=== PATIENT | male | born 2000 | race Caucasian/White ===

== ENCOUNTER 2020-12-24 15:03 | Inpatient (IN) | payer BC ==
[~2020-12-24] VITALS: Ht 190.5 cm; Wt 66.2 kg
[2020-12-24] VITALS (14 sets, daily range): BP systolic 111–164; BP diastolic 68–101
[2020-12-24] MEDS ORDERED: NS 100ML 100 ML IV ONE ×2 (16:42→22:54)
[2020-12-24] MEDS ORDERED: HUMULIN R ONE (16:43)
[2020-12-24] MEDS ORDERED: NS 1000ML 1,000 ML ONE ×2 (16:45→18:50)
[2020-12-24] MEDS ORDERED: HUMULIN R 100 UNIT in NS 100ML 100 ML IV SCH (17:00)
[2020-12-24] MEDS: NS 1000ML 1,000 ML IV SCH (17:27)
[2020-12-24 17:35] LABS: ABG PCO2 11.3 mmHg (35.0-45.0); BE(B) -26.2 mmol/L (-2.0-2.0); HCO3act 2.8 mmol/L (22.0-26.0); pO2 113.8 mmHg (80.0-100.0)
--- NOTE | 2020-12-24 17:48 | PCM.HP ---
History of Present Illness Reason for Visit: Nausea vomiting and abdominal pain History of Present Illness 20-year-old male with history of diabetes mellitus, type I being transferred from outside facility after he presented there with nausea vomiting and abdominal pain. Patient was found to be in diabetic ketoacidosis with elevated glucose, elevated anion gap more than 30 and a pH of 7.0. Apparently patient has not been able to take his Lantus for financial reasons. He only takes his Humalog. Start feeling sick the last 2 days. No fever no chills. Patient is being admitted to intensive care unit for further management. Past Medical History Endocrine: Diabetes Past Surgical History: No pertinent hx Past Social History Smoke: No Alcohol: none Review of Systems Constitutional: Weakness Gastrointestinal: Nausea, Vomiting, Abdominal Pain Allergies: Coded Allergies: No Known Allergies (Unverified , 12/24/20) Scheduled Insulin Glargine,Hum.rec.anlog (Lantus), 30 UNIT SQ HS Insulin Lispro (Humalog), 10 UNIT SQ AC VTE VTE Risk Score VTE Risk: Score 0-1 = Low Risk (Aggressive mobilization; early ambulation; no VTE prophylaxis required) Score 2: Moderate Risk (Intermittent/Pneumatic Compression Device OR Lovenox/Heparin/Coumadin) Score 3-4: High Risk (Intermittent/Pneumatic Compression Device AND Lovenox/Heparin/Coumadin) Score > or =5: Highest Risk (Intermittent/Pneumatic Compression Device AND Lovenox/Heparin/Coumadin) VTE VTE Present on Admission: No Currently receiving anticoagul: No Exam Vital Signs Vital Signs Date Time Temp Pulse Resp B/P (MAP) Pulse Ox O2 Delivery O2 Flow Rate FiO2 12/24/20 17:01 98.6 125 24 164/101 (122) 97 General Appearance: Alert, moderate distress HEENT: Atraumatic, PERRLA, Other (Dry mucous membranes) Respiratory: Clear to auscultation, Normal air movement Cardiovascular: Regular rate, Normal S1, Normal S2 Abdominal: Normal bowel sounds, Soft Extremities: No cyanosis Skin: No breakdown, No lesions Neuro: Normal speech, Normal tone Psych/Mental Status: Mental status NL, Mood NL Assessment/Plan Assessment/Plan Assessment/Plan 20-year-old male with history of diabetes mellitus, type I being transferred from outside facility after he presented there with nausea vomiting and abdominal pain. Patient was found to be in diabetic ketoacidosis with elevated glucose, elevated anion gap more than 30 and a pH of 7.0. Apparently patient has not been able to take his Lantus for financial reasons. He only takes his Humalog. Start feeling sick the last 2 days. No fever no chills. Patient is being admitted to intensive care unit for further management. Plan Admit to ICU IV fluids Insulin Monitor and correct electrolytes Empiric antibiotic for elevated WBC count, Diabetic teaching GI and DVT prophylaxis Expect length of stay more than 1 midnight Case discussed with patient and patient family Patient presenting with potentially life-threatening condition, critical care time spent examining the patient, reviewing labs, discussing the case with DIRECTOR HOSPICE OPERATIONS, patient and patient family, documentation 70 minutes Problems: (1) DKA, type 1 ICD Code: E10.10 - Type 1 diabetes mellitus with ketoacidosis without coma SNOMED: 55821576, [id number] IGNACIO MENENDEZ MD Dec 24, 2020 17:48
[2020-12-24] MEDS ORDERED: D5W 1000ML 1,000 ML IV PRN (18:00)
[2020-12-24] MEDS: PROTONIX IV IV SCH (18:00)
[2020-12-24] MEDS ORDERED: ZOFRAN IV PRN ×2 (18:00)
[2020-12-24] MEDS ORDERED: DEXTROSE 50%-WATER SYRINGE IV PRN (18:00)
[2020-12-24 18:15] LABS: MEAN CORP HGB 30.1 pg (26-34); RED CELL DISTRIBUTION WIDTH 12.2 % (11.5-14.5)
[2020-12-24 18:20] LABS: CALCIUM 8.8 mg/dL (8.4-10.5); CARBON DIOXIDE 5.8 mmol/L (20.0-32)
--- NOTE | 2020-12-24 18:45 | PCM.EKG ---
[facility] Test Date: 2020-12-24 Test Time: 18:36:35 Pat Name: PRATIBHA ARITA Department: Room: ICU6 A Gender: M It Consultant: : [id number] Requested By: IGNACIO MENENDEZ Order Number: [id number] Reading MD: Measurements Intervals [place] Rate: 124 P: 72 ND: 120 QRS: 63 QRSD: 106 T: 28 QT: 329 QTc: 473 Interpretive Statements Sinus tachycardia Probable left atrial enlargement Borderline prolonged QT interval No previous ECG available for comparison Please click the below link to view image of tracing.
--- NOTE | 2020-12-24 19:15 | DIREP ---
PROCEDURE:CHEST 1 VIEW COMPARISON:None. INDICATIONS:DKA FINDINGS: LUNGS/PLEURA:No significant pulmonary parenchymal abnormalities. No effusions. VASCULATURE:Normal. Unremarkable pulmonary vasculature. CARDIAC:Normal. No cardiac silhouette abnormality or cardiomegaly. MEDIASTINUM:Normal. No visible mass or adenopathy. BONES:Normal. No fracture or visible bony lesion. OTHER:Negative. CONCLUSION:No acute cardiopulmonary abnormality. Dictated by: Kenny Duvall M.D. on 12/24/2020 at 07:12 PM
--- NOTE | 2020-12-24 20:38 | NUR ---
NOTIFIED DR NG OF LACTIC OF 2.9 AND PT RUNNING NS @ 250 NO NEW ORDERS RECEIVED
[2020-12-24] MEDS ORDERED: D5W-1/2NS 1000ML 1,000 ML ONE (21:54)
[2020-12-24] MEDS: D5W-1/2NS 1000ML 1,000 ML IV SCH (22:00)
--- NOTE | 2020-12-24 22:00 | NUR ---
B.S. <200. NS infusion stopped and D51/2 NS started @250ml/hr per protocol
--- NOTE | 2020-12-24 22:24 | NUR ---
BMP and UA collected and sent to lab
[2020-12-24 22:36] LABS: BILIRUBIN,URINE 1+ (NEGATIVE); UROBILINOGEN,URINE 0.2 E.U./dL (0.2)
--- NOTE | 2020-12-24 22:54 | NUR ---
Repeat lactic sent down to lab.
[2020-12-24] MEDS: MAXIPIME 1 GM in NS 100ML 100 ML IV SCH (23:00)
[2020-12-25] VITALS (40 sets, daily range): BP systolic 103–149; BP diastolic 49–96
[2020-12-25 00:36] LABS: CALCIUM 8.6 mg/dL (8.4-10.5); CARBON DIOXIDE 11.2 mmol/L (20.0-32)
--- NOTE | 2020-12-25 00:50 | NUR ---
Dr. Garcia notified of pt current BMP and lactic lab results.
[2020-12-25] MEDS: D5W-1/2NS 1000ML 1,000 ML IV SCH ×3 (03:22→11:00)
[2020-12-25 04:35] LABS: BASOPHIL % 0.1 % (0.0-0.2); LYMPHOCYTES # 2.02 10^3/uL1 (1.2-5.2); LYMPHOCYTES % 10.9 % (24.0-44.0); MEAN CORP HGB 30.5 pg (26-34); MONOCYTES # 1.9 10^3/uL (0.0-0.4); MONOCYTES % 10.2 % (5.0-12.0); NEUTROPHIL # 14.6 10^3/uL (1.8-8.0); NEUTROPHILS % 78.8 % (41.0-85.0); PLATELET COUNT 305 10^3/uL (150-400); RED CELL DISTRIBUTION WIDTH 12.5 % (11.5-14.5)
[2020-12-25 04:50] LABS: CALCIUM 8.8 mg/dL (8.4-10.5); CARBON DIOXIDE 17.1 mmol/L (20.0-32)
[2020-12-25 04:53] LABS: ABG PH 7.298 (7.350-7.450); BE(B) -11.7 mmol/L (-2.0-2.0); HCO3act 12.9 mmol/L (22.0-26.0); pO2 89.9 mmHg (80.0-100.0)
[2020-12-25] MEDS: NS 1000ML 1,000 ML IV SCH (06:00)
[2020-12-25 08:19] LABS: CALCIUM 8.8 mg/dL (8.4-10.5); CARBON DIOXIDE 19.1 mmol/L (20.0-32)
[2020-12-25] MEDS: PROTONIX IV IV SCH (09:00)
[2020-12-25] MEDS: MAXIPIME 1 GM in NS 100ML 100 ML IV SCH ×2 (09:00→22:00)
[2020-12-25 12:15] LABS: CALCIUM 8.9 mg/dL (8.4-10.5); CARBON DIOXIDE 14.3 mmol/L (20.0-32)
--- NOTE | 2020-12-25 14:42 | PRM.PN ---
Subjective Subjective Date: Dec 25, 2020 Time: 09:00 Subjective Patient is feeling better this morning. Has vomiting. Anion gap improving. Continues to be on IV fluids and insulin drip. WBC count trending down. Review of Systems Constitutional: Weakness Gastrointestinal: Nausea, Vomiting, Abdominal Pain Allergies: Coded Allergies: No Known Allergies (Unverified , 12/24/20) Objective Vitals and I/O Vital Sign - Last 24 Hours 12/24/20 12/24/20 12/24/20 12/24/20 16:48 17:00 17:01 18:30 Temp 98.6 Pulse 125 132 Resp 24 24 B/P (MAP) 147/84 (105) 164/101 (122) Pulse Ox 95 96 97 99 12/24/20 12/24/20 12/24/20 12/24/20 18:45 19:00 19:15 19:30 Pulse 120 116 116 122 Resp 21 20 20 23 B/P (MAP) 145/73 (97) 115/79 (91) 125/90 (102) Pulse Ox 99 100 98 99 12/24/20 12/24/20 12/24/20 12/24/20 19:45 20:00 20:00 20:15 Temp 98.8 Pulse 120 125 122 Resp 16 18 19 B/P (MAP) 134/78 (96) 126/83 (97) Pulse Ox 99 99 99 O2 Delivery Room Air 12/24/20 12/24/20 12/24/20 12/24/20 20:30 20:45 21:00 21:15 Pulse 118 119 118 118 Resp 17 16 15 16 B/P (MAP) 118/68 (85) 124/78 (93) Pulse Ox 99 99 99 99 12/24/20 12/24/20 12/24/20 12/24/20 21:30 21:45 22:00 22:15 Pulse 120 118 118 119 Resp 16 15 16 16 B/P (MAP) 124/75 (91) 128/75 (92) Pulse Ox 99 99 99 99 12/24/20 12/24/20 12/24/20 12/24/20 22:30 22:45 23:00 23:15 Pulse 115 116 114 114 Resp 22 20 20 16 B/P (MAP) 131/71 (91) 111/90 (97) Pulse Ox 99 98 99 99 12/24/20 12/24/20 12/25/20 12/25/20 23:30 23:45 00:00 00:14 Pulse 114 110 108 Resp 16 17 16 B/P (MAP) 133/76 (95) 110/63 (79) Pulse Ox 99 98 98 O2 Delivery Room Air 12/25/20 12/25/20 12/25/20 12/25/20 00:15 00:30 00:45 01:00 Temp 98.4 Pulse 103 105 107 108 Resp 15 16 14 14 B/P (MAP) 121/73 (89) 128/61 (83) Pulse Ox 99 99 99 99 12/25/20 12/25/20 12/25/20 12/25/20 01:15 01:30 01:45 02:00 Pulse 105 110 118 104 Resp 13 17 25 14 B/P (MAP) 137/75 (95) 135/75 (95) Pulse Ox 99 98 97 99 12/25/20 12/25/20 12/25/20 12/25/20 02:15 02:30 02:45 03:00 Pulse 100 103 104 100 Resp 14 14 14 13 B/P (MAP) 128/72 (90) 122/65 (84) Pulse Ox 100 97 98 96 12/25/20 12/25/20 12/25/20 12/25/20 03:15 03:30 03:45 04:00 Pulse 103 109 103 100 Resp 14 15 15 13 B/P (MAP) 131/73 (92) 103/59 (74) Pulse Ox 97 96 96 98 12/25/20 12/25/20 12/25/20 12/25/20 04:00 04:04 04:15 04:30 Pulse 100 106 102 Resp 13 13 13 B/P (MAP) 103/59 (74) 118/69 (85) Pulse Ox 98 99 99 O2 Delivery Room Air 12/25/20 12/25/20 12/25/20 12/25/20 04:45 05:00 05:15 05:30 Pulse 101 108 100 101 Resp 14 14 13 16 B/P (MAP) 131/90 (104) 122/86 (98) Pulse Ox 98 99 98 99 12/25/20 12/25/20 12/25/20 12/25/20 05:45 06:00 06:15 06:30 Pulse 100 114 95 96 Resp 15 17 14 18 B/P (MAP) 127/85 (99) Pulse Ox 98 97 99 98 12/25/20 12/25/20 12/25/20 12/25/20 06:31 06:45 07:00 07:15 Pulse 100 100 102 97 Resp 50 15 15 14 B/P (MAP) 135/80 (98) 132/75 (94) Pulse Ox 99 99 99 99 12/25/20 12/25/20 12/25/20 12/25/20 07:30 07:45 08:00 08:00 Pulse 99 100 95 95 Resp 15 10 16 16 B/P (MAP) 134/74 (94) 130/82 (98) 130/82 (98) Pulse Ox 98 98 99 99 12/25/20 12/25/20 12/25/20 12/25/20 08:00 08:15 08:30 08:45 Pulse 109 95 106 Resp 17 17 15 B/P (MAP) 132/96 (108) Pulse Ox 99 98 99 O2 Delivery Room Air 12/25/20 12/25/20 12/25/20 12/25/20 09:00 09:15 09:30 09:45 Pulse 103 103 97 100 Resp 18 16 14 15 B/P (MAP) 134/88 (103) 124/69 (87) Pulse Ox 98 99 98 98 12/25/20 12/25/20 12/25/20 12/25/20 10:00 10:15 10:30 10:45 Pulse 94 103 103 110 Resp 11 15 17 14 B/P (MAP) 129/69 (89) 123/94 (104) Pulse Ox 98 98 99 100 12/25/20 12/25/20 12/25/20 12/25/20 11:00 11:15 11:30 11:45 Pulse 107 106 104 102 Resp 19 15 16 16 B/P (MAP) 108/79 (89) 109/58 (75) Pulse Ox 96 98 97 99 12/25/20 12:00 O2 Delivery Room Air Intake and Output 12/25/20 07:00 Intake Total 3895 ml Output Total 2380 ml Balance 1515 ml General: Alert, Oriented X3 HEENT: Atraumatic, PERRLA Neck: Supple, No JVD Lungs: Clear to auscultation Heart: Regular rate, Normal S1 Abdomen: Normal bowel sounds, Soft Extremities: No clubbing, No cyanosis Skin: No rashes, No significant lesion Neuro: Normal speech, Normal tone Psych/Mental Status: Mental status NL, Mood NL All Results(Lab/Rad) Laboratory Tests Test 12/24/20 17:20 12/24/20 17:44 12/24/20 18:16 12/24/20 19:47 Blood Gas Sample Site LEFT RADIAL ARTERY Blood Gas pH 7.010 Blood Gas PCO2 11.3 mmHg Blood Gas PO2 113.8 mmHg Blood Gas HCO3 2.8 mmol/L Blood Gas Base Excess -26.2 mmol/L Abhishek Test POSITIVE Arterial Blood Oxygen Saturation 97.1 % Deoxyhemoglobin 2.9 % Carboxyhemoglobin 0.3 % Methemoglobin 0.7 % Total Hemoglobin 17.6 % Total Oxygen Concentration 23.9 % Blood Gas Temperature 37 Oxygen Delivery Method (LAB) ROOM AIR FiO2 21 % Total Carbon Dioxide 3.1 mmol/L White Blood Count 28.5 10^3/uL Red Blood Count 5.42 10^6/uL Hemoglobin 16.3 g/dL Hematocrit 48.9 % Mean Corpuscular Volume 90.2 fL Mean Corpuscular Hemoglobin 30.1 pg Mean Corpuscular Hemoglobin Concent 33.3 g/dL Red Cell Distribution Width 12.2 % Platelet Count 444 10^3/uL Mean Platelet Volume 9.9 fL Sodium Level 133 mmol/L Potassium Level 5.3 mmol/L Chloride Level 97.0 mmol/L Carbon Dioxide Level 5.8 mmol/L Anion Gap 35.5 Blood Urea Nitrogen 16 mg/dL Creatinine 1.64 mg/dL Estimated GFR () 65.1 Est GFR (CKD-EPI)(Non-Afr Macanese) 53.8 BUN/Creatinine Ratio 9.0 Glucose Level 440 mg/dL Hemoglobin A1c 10.8 % Lactic Acid Level 2.9 mmol/L Calcium Level 8.8 mg/dL Total Bilirubin 0.5 mg/dL Aspartate Amino Transf (AST/SGOT) 9 U/L Alanine Aminotransferase (ALT/SGPT) 21 U/L Alkaline Phosphatase 99 U/L Total Protein 8.8 g/dL Albumin 4.6 g/dL Globulin 4.2 Albumin/Globulin Ratio 1.095 Bedside Glucose 356 301 Test 12/24/20 21:48 12/24/20 22:01 12/24/20 22:21 12/24/20 22:48 Bedside Glucose 182 Urine Collection Type CCMS Urine Color YELLOW Urine Appearance CLEAR Urine Bilirubin 1+ Urine Ketones 3+ Urine Specific [place] >=1.030 Urine pH 5.0 Urine Protein 2+ Urine Urobilinogen 0.2 E.U./dL Urine Nitrate NEGATIVE Urine Leukocyte Esterase NEGATIVE Urine Glucose (Auto)(UA) 500 mg/dL Urine Blood 1+ Urine RBC 0-2 RBC/HPF Urine WBC NONE SEEN WBC/HPF Urine Squamous Epithelial Cells FEW Urine Bacteria FEW Urine Mucus FEW Urine Opiates Screen NEGATIVE Urine Methadone Screen NEGATIVE Urine Barbiturates Screen NEGATIVE Urine Phencyclidine Screen NEGATIVE Ur Amphetamine/Methamphetamine NEGATIVE Urine MDMA Screen (Ecstasy) NEGATIVE Urine Benzodiazepines Screen NEGATIVE Urine Cocaine Metabolite Screen NEGATIVE Ur Tetrahydrocannabinol (THC) Scrn NEGATIVE Sodium Level 138 mmol/L Potassium Level 5.0 mmol/L Chloride Level 103.0 mmol/L Carbon Dioxide Level 11.2 mmol/L Glucose Level 233 mg/dL Blood Urea Nitrogen 16 mg/dL Creatinine 1.40 mg/dL Calcium Level 8.6 mg/dL Anion Gap 28.8 Estimated GFR () 78.2 Est GFR (CKD-EPI)(Non-Afr Macanese) 64.6 BUN/Creatinine Ratio 11.0 Lactic Acid Followup at 2 Hours 2.1 mmol/L Test 12/25/20 00:08 12/25/20 01:46 12/25/20 03:56 12/25/20 04:08 Bedside Glucose 253 252 223 White Blood Count 18.5 10^3/uL Red Blood Count 4.92 10^6/uL Hemoglobin 15.0 g/dL Hematocrit 42.5 % Mean Corpuscular Volume 86.4 fL Mean Corpuscular Hemoglobin 30.5 pg Mean Corpuscular Hemoglobin Concent 35.3 g/dL Red Cell Distribution Width 12.5 % Platelet Count 305 10^3/uL Mean Platelet Volume 9.6 fL Neutrophils (%) (Auto) 78.8 % Lymphocytes (%) (Auto) 10.9 % Monocytes (%) (Auto) 10.2 % Neutrophils # (Auto) 14.6 10^3/uL Lymphocytes # (Auto) 2.02 10^3/uL1 Monocytes # (Auto) 1.9 10^3/uL Absolute Immature Granulocyte (auto 0.04 10^3 u/L Absolute Eosinophils (auto) 0.0 10^3/uL Immature Granulocytes % 0.20 % Eosinophils % 0.0 % Basophils % 0.1 % Basophils # 0.0 10^3/uL Sodium Level 137 mmol/L Potassium Level 4.2 mmol/L Chloride Level 105.0 mmol/L Carbon Dioxide Level 17.1 mmol/L Anion Gap 19.1 Blood Urea Nitrogen 15 mg/dL Creatinine 1.30 mg/dL Estimated GFR () 85.2 Est GFR (CKD-EPI)(Non-Afr Macanese) 70.4 BUN/Creatinine Ratio 11.0 Glucose Level 260 mg/dL Hemoglobin A1c 11.4 % Calcium Level 8.8 mg/dL Total Bilirubin 0.5 mg/dL Aspartate Amino Transf (AST/SGOT) 12 U/L Alanine Aminotransferase (ALT/SGPT) 18 U/L Alkaline Phosphatase 71 U/L Total Protein 7.2 g/dL Albumin 3.7 g/dL Globulin 3.5 Albumin/Globulin Ratio 1.057 Test 12/25/20 04:35 12/25/20 05:49 12/25/20 07:58 12/25/20 10:31 Blood Gas Sample Site RR Blood Gas pH 7.298 Blood Gas PCO2 27.0 mmHg Blood Gas PO2 89.9 mmHg Blood Gas HCO3 12.9 mmol/L Blood Gas Base Excess -11.7 mmol/L Abhishek Test POSITIVE Arterial Blood Oxygen Saturation 96.9 % Deoxyhemoglobin 3.1 % Carboxyhemoglobin 0.2 % Methemoglobin 0.3 % Total Hemoglobin 15.4 % Total Oxygen Concentration 20.9 % Oxygen Delivery Method (LAB) ROOM AIR FiO2 21 % Total Carbon Dioxide 13.8 mmol/L Bedside Glucose 272 114 Sodium Level 137 mmol/L Potassium Level 3.5 mmol/L Chloride Level 104.0 mmol/L Carbon Dioxide Level 19.1 mmol/L Glucose Level 238 mg/dL Blood Urea Nitrogen 12 mg/dL Creatinine 1.33 mg/dL Calcium Level 8.8 mg/dL Anion Gap 17.4 Estimated GFR () 82.9 Est GFR (CKD-EPI)(Non-Afr Macanese) 68.5 BUN/Creatinine Ratio 9.0 Test 12/25/20 11:56 12/25/20 12:45 12/25/20 14:11 Sodium Level 138 mmol/L Potassium Level 3.4 mmol/L Chloride Level 105.0 mmol/L Carbon Dioxide Level 14.3 mmol/L Glucose Level 168 mg/dL Blood Urea Nitrogen 13 mg/dL Creatinine 1.06 mg/dL Calcium Level 8.9 mg/dL Anion Gap 22.1 Estimated GFR () 107.8 Est GFR (CKD-EPI)(Non-Afr Macanese) 89.1 BUN/Creatinine Ratio 12.0 Bedside Glucose 173 202 Current Medications Medications (Trade) Dose Ordered Sig/Joshua Route PRN Reason Start Time Stop Time Status Last Admin Dose Admin Insulin Human Regular 100 unit/ Sodium Chloride 101 ml @ 6 mls/hr IV 12/24/20 17:00 01/23/21 16:59 12/24/20 17:26 Sodium Chloride 100 ml @ ud STK-MED ONCE IV 12/24/20 16:42 12/24/20 16:43 DC Insulin Human Regular (Humulin R) 1 unit STK-MED ONCE .ROUTE 12/24/20 16:43 12/24/20 16:44 DC Sodium Chloride 1,000 ml @ ud STK-MED ONCE .ROUTE 12/24/20 16:45 12/24/20 16:46 DC Sodium Chloride 1,000 ml @ 250 mls/hr Q8 IV 12/24/20 22:00 01/23/21 21:59 12/25/20 06:00 Dextrose 1,000 ml @ 100 mls/hr Q10H PRN IV hypoglycemia 12/24/20 18:00 01/23/21 17:59 Dextrose (Dextrose 50%-Water Syringe) 25 ml PRN PRN IV hypoglycemia 12/24/20 18:00 01/23/21 17:59 Ondansetron HCl (Zofran) 4 mg Q4H PRN IV NAUSEA / VOMITING 12/24/20 18:00 01/23/21 17:59 12/24/20 18:00 Pantoprazole Sodium (Protonix Iv) 40 mg DAILY IV 12/24/20 18:00 01/23/21 17:59 12/25/20 09:00 Ondansetron HCl (Zofran) 4 mg Q4H PRN IV NAUSEA / VOMITING 12/24/20 18:00 01/23/21 17:59 Sodium Chloride 1,000 ml @ ud STK-MED ONCE .ROUTE 12/24/20 18:50 12/24/20 18:50 DC Cefepime HCl 1 gm/ Sodium Chloride 100 ml @ 100 mls/hr Q12HR IV 12/24/20 21:00 01/23/21 20:59 12/25/20 09:00 Sodium Chloride 100 ml @ ud STK-MED ONCE IV 12/24/20 22:54 12/24/20 22:54 DC Assessment/Plan Assessment/Plan Assessment/Plan Plan We will continue with IV fluids and insulin drip for now, anion gap improving but stable elevated. Empiric antibiotic, WBC trending down GI and DVT prophylaxis Monitor and correct electrolytes Patient presenting with good angiographic condition, critical care time spent examining the patient, reviewing labs, images, discussing the case with TRUCK MECHANIC APPRENTICE 35 minutes. Problems: (1) DKA, type 1 ICD Code: E10.10 - Type 1 diabetes mellitus with ketoacidosis without coma SNOMED: [id number], [id number] IGNACIO MENENDEZ MD Dec 25, 2020 14:42
[2020-12-25] MEDS ORDERED: D5W-1/2 NS/KCL 20MEQ 1,000 ML ONE (15:23)
[2020-12-25] MEDS: D5W-1/2 NS/KCL 20MEQ 1,000 ML IV SCH ×3 (15:30→23:30)
[2020-12-25] MEDS: KCL 20 MEQ/100 ML IV SCH ×2 (15:40→19:46)
[2020-12-25 16:31] LABS: CALCIUM 8.8 mg/dL (8.4-10.5); CARBON DIOXIDE 16.6 mmol/L (20.0-32)
--- NOTE | 2020-12-25 20:57 | NUR ---
Dr. Stack over telephone, updated on pt status. 3rd bag of potassium replacement currently infusing. plan is to repeat BMP one hour after K+ replacement is done. will draw at midnight. Ok to start diabetic diet when anion gap <17, new orders received. pt is in bed, asleep, awakens easily. SR, BP WNL, c/o generalized pain 07/18. insulin and d51/2 NS with 20K currently infusing. will continue to monitor
[2020-12-25 23:56] LABS: CALCIUM 8.8 mg/dL (8.4-10.5); CARBON DIOXIDE 22.3 mmol/L (20.0-32)
[2020-12-26] VITALS (12 sets, daily range): BP systolic 102–140; BP diastolic 42–89
[2020-12-26] MEDS ORDERED: LANTUS SQ STA (00:18)
--- NOTE | 2020-12-26 00:40 | NUR ---
Lantus 20u given, diabetic diet ordered. will recheck blood sugar. pt denies any nausea, no vomiting, no diarrhea. will stop insulin drip 2hrs from now.
--- NOTE | 2020-12-26 02:43 | NUR ---
Insulin drip turned off.
[2020-12-26 04:26] LABS: BASOPHIL % 0.2 % (0.0-0.2); EOSINOPHIL % 0.3 % (0.0-5.0); LYMPHOCYTES # 2.13 10^3/uL1 (1.2-5.2); LYMPHOCYTES % 18.8 % (24.0-44.0); MEAN CORP HGB 31.1 pg (26-34); MONOCYTES # 1.2 10^3/uL (0.0-0.4); MONOCYTES % 10.2 % (5.0-12.0); NEUTROPHILS % 70.5 % (41.0-85.0); PLATELET COUNT 213 10^3/uL (150-400); RED CELL DISTRIBUTION WIDTH 12.3 % (11.5-14.5)
[2020-12-26 04:41] LABS: CALCIUM 8.7 mg/dL (8.4-10.5)
--- NOTE | 2020-12-26 04:50 | NUR ---
Dr. Rodriguez over telephone. updated pt status, current lab results. orders for mild sliding scale and ACHS blood sugar checks. order for 40meq po x 2 doses received. will continue to monitor
[2020-12-26] MEDS ORDERED: DEXTROSE 50%-WATER SYRINGE IV PRN (05:30)
[2020-12-26] MEDS ORDERED: KLOR-CON 10 PO SCH (05:30)
[2020-12-26] MEDS: HUMALOG SQ SCH ×4 (07:30→21:00)
[2020-12-26] MEDS: MAXIPIME 1 GM in NS 100ML 100 ML IV SCH (08:22)
[2020-12-26] MEDS: PROTONIX IV IV SCH (08:22)
--- NOTE | 2020-12-26 12:00 | NUR ---
Transfer to [facility] surg Patient transferred to [facility] from ICU 6 via wheel chair. Transferred from wheel chair to bed without difficulty. Report given to Elena MAR.
[2020-12-26] MEDS ORDERED: NS 1000ML 1,000 ML ONE (12:39)
--- NOTE | 2020-12-26 12:52 | NUR ---
Pt alert and orientedx4,on RA, sitting on the side of the bed. Pt transferred from [place]. He appears to be in no appears to be in no apparent distress. Parents are at bedside. Pt denies any pain or discomforts, tolerated lunch well, denies any n/v tolerating PO fluids. Pt oriented to room. No c/o at this time, safety and comfort measures are in place.
[2020-12-26] MEDS: NS 1000ML 1,000 ML IV SCH (12:55)
--- NOTE | 2020-12-26 13:04 | PRM.PN ---
Subjective Subjective Date: Dec 26, 2020 Time: 09:00 Subjective Patient is feeling better this morning. Tolerating diet. Insulin drip was stopped, currently on subcu insulin Review of Systems Constitutional: Weakness Gastrointestinal: Nausea; No: Vomiting, Abdominal Pain Allergies: Coded Allergies: No Known Allergies (Unverified , 12/24/20) Objective Vitals and I/O Vital Sign - Last 24 Hours 12/25/20 12/25/20 12/25/20 12/25/20 13:15 13:30 13:45 14:00 Pulse 96 94 92 93 Resp 14 25 14 17 B/P (MAP) 129/64 (85) 136/66 (89) Pulse Ox 99 97 99 99 12/25/20 12/25/20 12/25/20 12/25/20 14:15 14:30 14:45 15:00 Pulse 98 89 95 93 Resp 13 26 16 B/P (MAP) 131/79 (96) 134/73 (93) Pulse Ox 99 99 99 98 12/25/20 12/25/20 12/25/20 12/25/20 15:15 15:30 15:45 16:00 Pulse 88 87 94 91 Resp 15 15 16 15 B/P (MAP) 129/75 (93) 124/68 (86) Pulse Ox 98 99 97 98 12/25/20 12/25/20 12/25/20 12/25/20 16:00 18:30 18:45 19:00 Temp 98.5 Pulse 88 87 92 Resp 12 15 5 B/P (MAP) 125/71 (89) 135/51 (79) Pulse Ox 99 100 99 O2 Delivery Room Air 12/25/20 12/25/20 12/25/20 12/25/20 19:15 19:30 19:45 20:00 Pulse 87 92 91 Resp 14 15 15 B/P (MAP) 115/60 (78) Pulse Ox 98 98 97 O2 Delivery Room Air 12/25/20 12/25/20 12/25/20 12/25/20 20:00 20:15 20:30 20:45 Pulse 89 94 84 82 Resp 16 14 17 15 B/P (MAP) 115/63 (80) Pulse Ox 97 97 98 97 12/25/20 12/25/20 12/25/20 12/25/20 21:00 21:15 21:30 21:45 Pulse 85 92 94 83 Resp 16 14 17 14 B/P (MAP) 110/60 (77) Pulse Ox 97 99 98 99 12/25/20 12/25/20 12/25/20 12/25/20 22:00 22:15 22:30 22:45 Pulse 89 84 91 91 Resp 16 14 16 16 B/P (MAP) 122/49 (73) Pulse Ox 98 98 97 97 12/25/20 12/25/20 12/25/20 12/25/20 23:00 23:15 23:30 23:45 Pulse 88 83 103 86 Resp 14 14 14 13 B/P (MAP) 149/78 (101) Pulse Ox 98 99 99 98 12/26/20 12/26/20 12/26/20 12/26/20 00:00 00:00 00:15 00:30 Pulse 82 91 84 Resp 14 16 16 B/P (MAP) 133/74 (93) Pulse Ox 100 100 98 O2 Delivery Room Air 12/26/20 12/26/20 12/26/20 12/26/20 00:45 01:00 01:15 01:30 Pulse 84 88 97 90 Resp 23 14 13 19 B/P (MAP) 129/89 (102) Pulse Ox 98 12/26/20 12/26/20 12/26/20 12/26/20 01:45 02:00 02:15 02:30 Pulse 102 87 88 83 Resp 17 18 16 10 B/P (MAP) 128/64 (85) 12/26/20 12/26/20 12/26/20 12/26/20 04:22 06:30 06:45 07:00 Pulse 80 90 81 Resp 25 14 10 Pulse Ox 99 98 99 O2 Delivery Room Air 12/26/20 12/26/20 12/26/20 12/26/20 07:01 07:15 07:30 07:45 Pulse 85 92 93 89 Resp 16 16 11 12 B/P (MAP) 123/59 (80) Pulse Ox 99 99 98 99 12/26/20 12/26/20 12/26/20 12/26/20 08:00 08:00 08:15 08:30 Pulse 86 96 101 Resp 12 15 15 B/P (MAP) 140/82 (101) Pulse Ox 99 99 99 O2 Delivery Room Air 11/12/26/20 12/26/20 12/26/20 08:45 09:00 09:15 09:30 Pulse 80 86 95 92 Resp 12 14 14 17 B/P (MAP) 132/42 (72) Pulse Ox 99 99 99 98 12/26/20 12/26/20 12/26/20 12/26/20 09:45 10:00 10:15 10:30 Pulse 95 81 89 96 Resp 16 13 13 16 B/P (MAP) 139/85 (103) Pulse Ox 96 98 96 97 12/26/20 12/26/20 12/26/20 12/26/20 10:45 11:00 11:15 11:30 Pulse 77 80 81 80 Resp 12 20 12 B/P (MAP) 124/68 (86) Pulse Ox 98 97 99 98 12/26/20 12/26/20 12/26/20 11:45 12:00 12:21 Temp 99.5 Pulse 87 88 84 Resp 16 12 18 B/P (MAP) 124/66 (85) 131/85 (100) Pulse Ox 99 99 99 Intake and Output 12/26/20 07:00 Intake Total 4406 ml Output Total 2170 ml Balance 2236 ml General: Alert, Oriented X3 HEENT: Atraumatic, PERRLA Neck: Supple, No JVD Lungs: Clear to auscultation Heart: Regular rate, Normal S1 Abdomen: Normal bowel sounds, Soft Extremities: No clubbing, No cyanosis Skin: No rashes, No significant lesion Neuro: Normal speech, Normal tone Psych/Mental Status: Mental status NL, Mood NL All Results(Lab/Rad) Laboratory Tests Test 12/24/20 17:20 12/24/20 17:44 12/24/20 18:16 12/24/20 19:47 Blood Gas Sample Site LEFT RADIAL ARTERY Blood Gas pH 7.010 Blood Gas PCO2 11.3 mmHg Blood Gas PO2 113.8 mmHg Blood Gas HCO3 2.8 mmol/L Blood Gas Base Excess -26.2 mmol/L Abhishek Test POSITIVE Arterial Blood Oxygen Saturation 97.1 % Deoxyhemoglobin 2.9 % Carboxyhemoglobin 0.3 % Methemoglobin 0.7 % Total Hemoglobin 17.6 % Total Oxygen Concentration 23.9 % Blood Gas Temperature 37 Oxygen Delivery Method (LAB) ROOM AIR FiO2 21 % Total Carbon Dioxide 3.1 mmol/L White Blood Count 28.5 10^3/uL Red Blood Count 5.42 10^6/uL Hemoglobin 16.3 g/dL Hematocrit 48.9 % Mean Corpuscular Volume 90.2 fL Mean Corpuscular Hemoglobin 30.1 pg Mean Corpuscular Hemoglobin Concent 33.3 g/dL Red Cell Distribution Width 12.2 % Platelet Count 444 10^3/uL Mean Platelet Volume 9.9 fL Sodium Level 133 mmol/L Potassium Level 5.3 mmol/L Chloride Level 97.0 mmol/L Carbon Dioxide Level 5.8 mmol/L Anion Gap 35.5 Blood Urea Nitrogen 16 mg/dL Creatinine 1.64 mg/dL Estimated GFR () 65.1 Est GFR (CKD-EPI)(Non-Afr Danish) 53.8 BUN/Creatinine Ratio 9.0 Glucose Level 440 mg/dL Hemoglobin A1c 10.8 % Lactic Acid Level 2.9 mmol/L Calcium Level 8.8 mg/dL Total Bilirubin 0.5 mg/dL Aspartate Amino Transf (AST/SGOT) 9 U/L Alanine Aminotransferase (ALT/SGPT) 21 U/L Alkaline Phosphatase 99 U/L Total Protein 8.8 g/dL Albumin 4.6 g/dL Globulin 4.2 Albumin/Globulin Ratio 1.095 Bedside Glucose 356 301 Test 12/24/20 21:48 12/24/20 22:01 12/24/20 22:21 12/24/20 22:48 Bedside Glucose 182 Urine Collection Type CCMS Urine Color YELLOW Urine Appearance CLEAR Urine Bilirubin 1+ Urine Ketones 3+ Urine Specific [place] >=1.030 Urine pH 5.0 Urine Protein 2+ Urine Urobilinogen 0.2 E.U./dL Urine Nitrate NEGATIVE Urine Leukocyte Esterase NEGATIVE Urine Glucose (Auto)(UA) 500 mg/dL Urine Blood 1+ Urine RBC 0-2 RBC/HPF Urine WBC NONE SEEN WBC/HPF Urine Squamous Epithelial Cells FEW Urine Bacteria FEW Urine Mucus FEW Urine Opiates Screen NEGATIVE Urine Methadone Screen NEGATIVE Urine Barbiturates Screen NEGATIVE Urine Phencyclidine Screen NEGATIVE Ur Amphetamine/Methamphetamine NEGATIVE Urine MDMA Screen (Ecstasy) NEGATIVE Urine Benzodiazepines Screen NEGATIVE Urine Cocaine Metabolite Screen NEGATIVE Ur Tetrahydrocannabinol (THC) Scrn NEGATIVE Sodium Level 138 mmol/L Potassium Level 5.0 mmol/L Chloride Level 103.0 mmol/L Carbon Dioxide Level 11.2 mmol/L Glucose Level 233 mg/dL Blood Urea Nitrogen 16 mg/dL Creatinine 1.40 mg/dL Calcium Level 8.6 mg/dL Anion Gap 28.8 Estimated GFR () 78.2 Est GFR (CKD-EPI)(Non-Afr Danish) 64.6 BUN/Creatinine Ratio 11.0 Lactic Acid Followup at 2 Hours 2.1 mmol/L Test 12/25/20 00:08 12/25/20 01:46 12/25/20 03:56 12/25/20 04:08 Bedside Glucose 253 252 223 White Blood Count 18.5 10^3/uL Red Blood Count 4.92 10^6/uL Hemoglobin 15.0 g/dL Hematocrit 42.5 % Mean Corpuscular Volume 86.4 fL Mean Corpuscular Hemoglobin 30.5 pg Mean Corpuscular Hemoglobin Concent 35.3 g/dL Red Cell Distribution Width 12.5 % Platelet Count 305 10^3/uL Mean Platelet Volume 9.6 fL Neutrophils (%) (Auto) 78.8 % Lymphocytes (%) (Auto) 10.9 % Monocytes (%) (Auto) 10.2 % Neutrophils # (Auto) 14.6 10^3/uL Lymphocytes # (Auto) 2.02 10^3/uL1 Monocytes # (Auto) 1.9 10^3/uL Absolute Immature Granulocyte (auto 0.04 10^3 u/L Absolute Eosinophils (auto) 0.0 10^3/uL Immature Granulocytes % 0.20 % Eosinophils % 0.0 % Basophils % 0.1 % Basophils # 0.0 10^3/uL Sodium Level 137 mmol/L Potassium Level 4.2 mmol/L Chloride Level 105.0 mmol/L Carbon Dioxide Level 17.1 mmol/L Anion Gap 19.1 Blood Urea Nitrogen 15 mg/dL Creatinine 1.30 mg/dL Estimated GFR () 85.2 Est GFR (CKD-EPI)(Non-Afr Danish) 70.4 BUN/Creatinine Ratio 11.0 Glucose Level 260 mg/dL Hemoglobin A1c 11.4 % Calcium Level 8.8 mg/dL Total Bilirubin 0.5 mg/dL Aspartate Amino Transf (AST/SGOT) 12 U/L Alanine Aminotransferase (ALT/SGPT) 18 U/L Alkaline Phosphatase 71 U/L Total Protein 7.2 g/dL Albumin 3.7 g/dL Globulin 3.5 Albumin/Globulin Ratio 1.057 Test 12/25/20 04:35 12/25/20 05:49 12/25/20 07:58 12/25/20 10:31 Blood Gas Sample Site RR Blood Gas pH 7.298 Blood Gas PCO2 27.0 mmHg Blood Gas PO2 89.9 mmHg Blood Gas HCO3 12.9 mmol/L Blood Gas Base Excess -11.7 mmol/L Abhishek Test POSITIVE Arterial Blood Oxygen Saturation 96.9 % Deoxyhemoglobin 3.1 % Carboxyhemoglobin 0.2 % Methemoglobin 0.3 % Total Hemoglobin 15.4 % Total Oxygen Concentration 20.9 % Oxygen Delivery Method (LAB) ROOM AIR FiO2 21 % Total Carbon Dioxide 13.8 mmol/L Bedside Glucose 272 114 Sodium Level 137 mmol/L Potassium Level 3.5 mmol/L Chloride Level 104.0 mmol/L Carbon Dioxide Level 19.1 mmol/L Glucose Level 238 mg/dL Blood Urea Nitrogen 12 mg/dL Creatinine 1.33 mg/dL Calcium Level 8.8 mg/dL Anion Gap 17.4 Estimated GFR () 82.9 Est GFR (CKD-EPI)(Non-Afr Danish) 68.5 BUN/Creatinine Ratio 9.0 Test 12/25/20 11:56 12/25/20 12:45 12/25/20 14:11 Sodium Level 138 mmol/L Potassium Level 3.4 mmol/L Chloride Level 105.0 mmol/L Carbon Dioxide Level 14.3 mmol/L Glucose Level 168 mg/dL Blood Urea Nitrogen 13 mg/dL Creatinine 1.06 mg/dL Calcium Level 8.9 mg/dL Anion Gap 22.1 Estimated GFR () 107.8 Est GFR (CKD-EPI)(Non-Afr Danish) 89.1 BUN/Creatinine Ratio 12.0 Bedside Glucose 173 202 Current Medications Medications (Trade) Dose Ordered Sig/Joshua Route PRN Reason Start Time Stop Time Status Last Admin Dose Admin Insulin Human Regular 100 unit/ Sodium Chloride 101 ml @ 6 mls/hr IV 12/24/20 17:00 01/23/21 16:59 12/24/20 17:26 Sodium Chloride 100 ml @ ud STK-MED ONCE IV 12/24/20 16:42 12/24/20 16:43 DC Insulin Human Regular (Humulin R) 1 unit STK-MED ONCE .ROUTE 12/24/20 16:43 12/24/20 16:44 DC Sodium Chloride 1,000 ml @ ud STK-MED ONCE .ROUTE 12/24/20 16:45 12/24/20 16:46 DC Sodium Chloride 1,000 ml @ 250 mls/hr Q8 IV 12/24/20 22:00 01/23/21 21:59 12/25/20 06:00 Dextrose 1,000 ml @ 100 mls/hr Q10H PRN IV hypoglycemia 12/24/20 18:00 01/23/21 17:59 Dextrose (Dextrose 50%-Water Syringe) 25 ml PRN PRN IV hypoglycemia 12/24/20 18:00 01/23/21 17:59 Ondansetron HCl (Zofran) 4 mg Q4H PRN IV NAUSEA / VOMITING 12/24/20 18:00 01/23/21 17:59 12/24/20 18:00 Pantoprazole Sodium (Protonix Iv) 40 mg DAILY IV 12/24/20 18:00 01/23/21 17:59 12/25/20 09:00 Ondansetron HCl (Zofran) 4 mg Q4H PRN IV NAUSEA / VOMITING 12/24/20 18:00 01/23/21 17:59 Sodium Chloride 1,000 ml @ ud STK-MED ONCE .ROUTE 12/24/20 18:50 12/24/20 18:50 DC Cefepime HCl 1 gm/ Sodium Chloride 100 ml @ 100 mls/hr Q12HR IV 12/24/20 21:00 01/23/21 20:59 12/25/20 09:00 Sodium Chloride 100 ml @ ud STK-MED ONCE IV 12/24/20 22:54 12/24/20 22:54 DC Assessment/Plan Assessment/Plan Assessment/Plan Plan Continue with SSI plus long-acting insulin I will discontinue IV cefepime and monitor overnight Diabetic teaching Possible discharge home if patient stable in a.m. Problems: (1) DKA, type 1 ICD Code: E10.10 - Type 1 diabetes mellitus with ketoacidosis without coma SNOMED: 82731465, [id number] IGNACIO EMNENDEZ MD Dec 26, 2020 13:04
[2020-12-26] MEDS ORDERED: TYLENOL PO PRN (15:00)
[2020-12-26] MEDS ORDERED: LANTUS SQ SCH (21:00)
[2020-12-27] MEDS: NS 1000ML 1,000 ML IV SCH (00:32)
[2020-12-27 00:55] VITALS: BP 110/74
[2020-12-27 05:00] VITALS: BP 121/75
[2020-12-27 05:22] LABS: CALCIUM 8.2 mg/dL (8.4-10.5); CARBON DIOXIDE 28.1 mmol/L (20.0-32)
[2020-12-27] MEDS: HUMALOG SQ SCH ×2 (07:47→12:12)
--- NOTE | 2020-12-27 08:16 | NUR ---
MEDICATION ASSISTANCE EVIE SPOKE WITH KASEY @ [phone] EXT [phone] REGARDING ASSISTIANCE WITH COPAYS ON MEDICATIONS. PER KASEY PATIENT WILL NEED TO CALL ADRIANNA AT THE [facility] HER PH NUMBER IS [phone] EXT [phone], OR [email or web address]. CM WILL PROVIDE INFORMATION TO PATIENT.
[2020-12-27] MEDS: PROTONIX IV IV SCH (09:14)
[2020-12-27 10:00] VITALS: BP 126/86
[2020-12-27] MEDS ORDERED: INSU100V8 SQ (11:36)
[2020-12-27] MEDS ORDERED: INSU100V SQ (11:36)
--- NOTE | 2020-12-27 11:58 | PRM.DC ---
Discharge Summary Date of Discharge: Dec 27, 2020 Time of Request to Discharge: 12:00 Reason for Visit: Nausea vomiting and abdominal pain Hospital Course 20-year-old male with history of diabetes mellitus, type I Who is being transferred from an outside emergency room after he presented with abdominal pain nausea and vomiting. Patient was found to be in diabetic ketoacidosis. Patient's was not taking his Lantus because of financial reasons. He only takes his Humalog. He started feeling sick 2 days prior to arrival. Work-up in the emergency room patient was found to be in DKA. With a pH of 7.0 and elevated anion gap more than 30. Patient admitted to the intensive care unit. Started on IV fluids, insulin, electrolyte replacement. Empiric antibiotic. Patient condition gradually improved. Today patient is feeling better, tolerating diet. Diabetic education provided by me. Patient was strongly advised that he needs to be compliant with his insulin. He said that he just got his insurance and he will be able to afford Lantus and Humalog. Prescriptions written. Patient will be discharged home. Activity as tolerated. Diet diabetic. Follow-up with to establish care with primary care provider as soon as possible. Exam/Vitals 110/70, heart rate 70, respiratory rate 18, temperature 98. General: Alert, Oriented X3 HEENT: Atraumatic, PERRLA Neck: Supple, No JVD Lungs: Clear to auscultation, Normal air movement Heart: Regular rate, Normal S1, Normal S2 Abdomen: Normal bowel sounds, Soft, No tenderness Extremities: No clubbing, No cyanosis Skin: No breakdown, No significant lesion Neuro: Normal gait, Normal speech, Strength at 5/5 X4 ext Psych/Mental Status: Mental status NL, Mood NL Scheduled Insulin Glargine,Hum.rec.anlog (Lantus), 30 UNIT SQ HS Insulin Lispro (Humalog), 10 UNIT SQ AC Sepsis Evaluation @ Discharge 12/27/20 10:17 Plan Problems: (1) DKA, type 1 ICD Code: E10.10 - Type 1 diabetes mellitus with ketoacidosis without coma SNOMED: [id number], [id number] Discharge Date: Dec 27, 2020 Discharge Disposition: Stable Plan 20-year-old male with history of diabetes mellitus, type I Who is being transferred from an outside emergency room after he presented with abdominal pain nausea and vomiting. Patient was found to be in diabetic ketoacidosis. Patient's was not taking his Lantus because of financial reasons. He only takes his Humalog. He started feeling sick 2 days prior to arrival. Work-up in the emergency room patient was found to be in DKA. With a pH of 7.0 and elevated anion gap more than 30. Patient admitted to the intensive care unit. Started on IV fluids, insulin, electrolyte replacement. Empiric antibiotic. Patient condition gradually improved. Today patient is feeling better, tolerating diet. Diabetic education provided by me. Patient was strongly advised that he needs to be compliant with his insulin. He said that he just got his insurance and he will be able to afford Lantus and Humalog. Prescriptions written. Patient will be discharged home. Activity as tolerated. Diet diabetic. Follow-up with to establish care with primary care provider as soon as possible. IGNACIO MENENDEZ MD Dec 27, 2020 11:58
[2020-12-27 12:38] VITALS: BP 126/86
--- NOTE | 2020-12-27 12:38 | NUR ---
DISCHARGE DISCHARGE INSTRUCTIONS GIVEN AND QUESTIONS ANSWERED, VOICED UNDERSTANDING, UP TO TAKE SHOWER, STEADY GAIT NOTED
[2020-12-27] MEDS ORDERED: COZAAR ONE (14:10)
== END 2020-12-27 13:00 | disposition home or self-care (01) | DRG 639 ==
LOC: ICU 15:03 → MS 12-26 12:20
PROVIDERS: ADMIT Internal Medicine; ATTEND Internal Medicine
DX: E10.10 Type 1 diabetes mellitus with ketoacidosis without coma (principal); Z79.4 Long term (current) use of insulin
CPT/HCPCS: 36415; 36600; 71045; 80048; 80053; 80307; 81001; 81003; 82803; 82948; 83036; 83605; 85025; 85027; 87040; 93005; C9113; G0378; J1815; J2405; J3490; J7030; J7070; J0692; J3480